=== PATIENT | female | born 1980 | race Caucasian/White ===

== ENCOUNTER 2016-12-10 00:34 | Emergency (ER) | payer OTHER ==
[2016-12-10] MEDS ORDERED: ONDANSETRON 4 MG ODT TAB ONE (01:22)
[2016-12-10] MEDS ORDERED: HYDROCODONE/ACETAMINOPHEN 5/325MG TABLET ONE (02:20)
== END 2016-12-10 02:33 | disposition home or self-care (01) ==
LOC: ED 00:34
DX: J11.1 Influenza due to unidentified influenza virus with other respiratory manifestations (principal); J45.909 Unspecified asthma, uncomplicated; F17.210 Nicotine dependence, cigarettes, uncomplicated
CPT/HCPCS: 99283 ×2; A9270 ×2